=== PATIENT | male | born 1945 | race Caucasian/White ===

== ENCOUNTER → 2018-01-15 08:22 | Outpatient (CLI) | payer MEDICARE, SELFPAY ==
[2018-01-15 09:18] LABS: Add Manual Diff / Slide Review NO; Basophils Percent Auto 0.5 % (0-2); Eosinophils Percent Auto 2.3 % (2-4); Hematocrit 46.2 % (41-53); Hemoglobin 15.7 g/dL (13.5-17.5); Lymphocytes Percent Auto 22.7 % (25-40); Mean Corpuscular HGB Conc 34.1 % (30-36); Mean Corpuscular Hemoglobin 30.4 PG (26-34); Mean Corpuscular Volume 89.4 fL (80-100); Monocytes Percent Auto 7.6 % (3-14); Neutrophils Absolute Auto 4200 /uL (3000-5900); Neutrophils Percent Auto 66.9 % (50-75); Platelet Count 140 X10^3/uL (150-400); Red Blood Cell Count 5.17 X10^6/uL (4.5-5.9); Red Cell Distribution Width 13.7 % (11.6-14.8); White Blood Cell Count 6.3 X10^3/uL (4.5-11.0)
[2018-01-15 09:58] LABS: BUN Creatinine Ratio 23.3 (6-22); Blood Urea Nitrogen 21 mg/dL (9-20); Calcium 9.6 mg/dL (8.4-10.2); Carbon Dioxide 31 mmol/L (22-32); Chloride 99 mmol/L (98-107); Estimated Glomerular Filt Rate > 60.0 mL/min (>60); Glucose 102 mg/dL (80-110); HEMOLYSIS < 15 (0-50); Potassium 4.3 mmol/L (3.4-5.1); Sodium 143 mmol/L (137-145)
== END ==
PROVIDERS: PCP Family Medicine; Visit Provider Urology
DX: N20.0 Calculus of kidney (principal)
CPT/HCPCS: 36415; 80048; 85025

== ENCOUNTER → 2018-01-17 14:21 | Outpatient (CLI) | payer MEDICARE, SELFPAY ==
--- NOTE | 2018-01-17 15:17 | DI.RAD.S_ITS ---
PROCEDURE: XR CHEST 2V INDICATIONS: RENAL CALCULUS TECHNIQUE: 2 views of the chest were acquired. COMPARISON: [facility], , CHEST 2 VIEW, 11/08/2014, 13:13. FINDINGS: Surgical changes and devices: Sternal wires. Lungs and pleura: No pleural effusions or pneumothorax. Lungs are clear. Mediastinum: Mediastinal contours are normal. Heart size is normal. Bones and chest wall: No suspicious bony abnormalities. Soft tissues appear unremarkable. IMPRESSION: No acute pulmonary process. Dictated by: Lila Marvin M.D. on 01/17/2018 at 16:47 Approved by: Lila Marvin M.D. on 01/17/2018 at 16:47
== END ==
PROVIDERS: PCP Family Medicine; Visit Provider Urology
DX: Z01.818 Encounter for other preprocedural examination (principal); N20.0 Calculus of kidney; R05 Cough
CPT/HCPCS: 71046; 93005; 93010

== ENCOUNTER → 2018-02-07 11:52 | Outpatient (CLI) | payer MEDICARE, SELFPAY | PROVIDERS: PCP Family Medicine; Visit Provider Urology | DX: N20.0 Calculus of kidney (principal) | CPT/HCPCS: 82370 ==

== ENCOUNTER 2018-04-08 12:14 | Outpatient (CLI) | payer MEDICARE, SELFPAY ==
[2018-04-08 12:58] VITALS: BP 124/68; PULSE 56; RESP 18; TEMP 36.7; O2SAT 99
--- NOTE | 2018-04-08 13:09 | DI.RAD.S_ITS ---
PROCEDURE: PAIN L INTERLAMINAR/CAUDAL INJ INDICATIONS: SPINAL STENOSIS FINDINGS: Fluoroscopic spot filming was performed to verify placement of spinal needles at the L5-S1 level(s), as labeled on the films. Appropriate location(s) of the needle tip(s) was confirmed by injection of iodinated contrast. IMPRESSION: Fluoroscopy for pain management. Dictated by: Kathleen Liu M.D. on 04/08/2018 at 16:16 Approved by: Kathleen Liu M.D. on 04/08/2018 at 16:16
--- NOTE | 2018-04-08 13:10 | P.PCN_ITS ---
Procedures Date/Time Date of procedure: 04/08/18 Time of procedure: 13:07 General Procedure description: PROVIDER: Yvan Liao DO Operative Note PREOP DIAGNOSIS 1. HNP WITH RADICULAR FEATURES, 2. MULTILEVEL CENTRAL STENOSIS, POST OP DIAGNOSIS 1. HNP WITH RADICULAR FEATURES, 2. MULTILEVEL CENTRAL STENOSIS, PROCEDURES 1. FLUORSCOPICALLY GUIDED CONTRAST CONTROLLED INTERLAMINAR EPIDURAL STEROID INJECTION - L5/S1 PHYSICIAN: Yvan Liao DO INDICATIONS Danial is referred by Dr. Harley for treatment of Bilateral Foraminal Stenosis L >R LE symptoms. FINDINGS Multilevel Central Spinal Stenosis with Nerve Root Compression DESCRIPTION OF PROCEDURE Fluoroscopically guided, contrast-controlled L5/S1 translaminar epidural steroid injection. Following denial of allergy and review of potential side effects and complications, including, but not necessarily limited to, infection, allergic reaction, local tissue breakdown, temporary as well as permanent nerve injury, paralysis, stroke and possible , the patient indicated that the patient understood and agreed to proceed. An informed consent document was signed by the patient, witnessed by a nurse, and placed in the patient's chart. Additionally, other treatment options including modalities, medications, and physical therapy were reviewed with the patient. After review of previous anaesthesic history and IV conscious sedation the patient was deemed safe to proceed with todays procedure with IV conscious sedation as ASA class II designation. Safety time-out was performed to confirm patient ID, procedure to be performed and site of procedure. IV sedation was deemed unnecessary and thus was not administered by the RN to patient comfort during the course of the procedure while the patient remained responsive to all verbal commands. In the prone position, following sterile prep and drape of the lumbar region, the L5/S1 translaminar space was identified fluoroscopically. The skin was anesthetized via a 25-gauge, 1.5-inch needle with 1% lidocaine solution. At this point, a 22-gauge short bevel spinal needle was atraumatically introduced and advanced under fluoroscopic guidance into the region of the L5/S1 translaminar space. Depth was confirmed on lateral view. Radiological data, including multiple fluoroscopic views of the lumbar spine, reveal a spinal needle at the L5/S1 translaminar space. Lateral views then show placement of the needle in the epidural space. Subsequent views show contrast material flowing superiorly and inferiorly in the epidural space. No vascular or intrathecal uptake is observed. At this point, using loss of resistance technique with saline and air, the epidural space was entered. This was confirmed following negative aspiration with injection of approximately 1.5 cc of Isovue 200, showing excellent epidural flow without vascular or intrathecal uptake. At this point, 1 cc of 1 % lidocaine solution combined with 3 cc or 20 mg of dexamethasone and 80mg Depo medrol was injected without incident. The patent tolerated the procedure without signs of symptoms of complications prior to transfer to the recovery area for further monitoring. The patient was then transferred to the recovery area where they were observed for an appropriate period of time after the injection. The patient reported a VAS score of 6 prior to the procedure and a post-procedure VAS of 0. Total Fluoroscopy Time: 11.8 seconds Total Conscious Sedation Time: 24min POST OP INSTRUCTIONS The patient was provided a Pain Log to continue to record their response to the target-specific procedure prior to follow-up visit with their referring physician. Additionally, specific post-injection care instructions and a contact number to our office were provided if concerns arise regarding possible complications associated with the procedure are suspected. Yvan Liao DO
[2018-04-08 13:21] VITALS: BP 145/79; PULSE 64; RESP 16; O2SAT 99
[2018-04-08 13:28] VITALS: BP 170/94; PULSE 72; RESP 18; O2SAT 99
[2018-04-08] MEDS: IOPAMIDOL 15 ML VIAL 3 ML INJ (13:29)
[2018-04-08] MEDS: BUPIVACAINE 0.25% (PF) VIAL 2 ML INJ (13:29)
[2018-04-08] MEDS: methylPREDNISolone acetate 80 MG/ML VIAL INJ (13:30)
[2018-04-08] MEDS: DEXAMETHASONE 10 MG/ML VIAL 20 MG INJ (13:30)
[2018-04-08 13:41] VITALS: BP 135/65; PULSE 59; RESP 18; O2SAT 100
--- NOTE | 2018-04-09 13:19 | PC.NURSE ---
post follow up call made and message left as pt did not answer phone.
== END 2018-04-08 13:45 ==
LOC: RAD 12:15
PROVIDERS: Family Provider Family Medicine; PCP Family Medicine; Visit Provider Physical Medicine & Rehabilitation
DX: M51.17 Intervertebral disc disorders with radiculopathy, lumbosacral region (principal); M48.061 Spinal stenosis, lumbar region without neurogenic claudication; M48.07 Spinal stenosis, lumbosacral region
CPT/HCPCS: 62323; J1040; J1100; J2250

== ENCOUNTER 2018-05-14 07:59 | Outpatient (CLI) | payer MEDICARE, SELFPAY ==
[2018-05-14 08:23] VITALS: BP 127/83; PULSE 56; RESP 18; O2SAT 99
--- NOTE | 2018-05-14 08:50 | P.PCN_ITS ---
Procedures Date/Time Date of procedure: 05/14/18 Time of procedure: 08:48 General Procedure description: PREOP DIAGNOSIS 1. FACET ARTHROPATHY, 2. AXIAL LBP, 3. MULTILEVEL DDD, POST OP DIAGNOSIS 1. FACET ARTHROPATHY, 2. AXIAL LBP, 3. MULTILEVEL DDD, PROCEDURES 1. FLUORSCOPICALLY GUIDED CONTRAST CONTROLLED FACET JOINT INJECTIONS RIGHT L4/5 , L5/S1 SURGEON: Yvan Liao, INDICATIONS Danial is referred by for treatment of Axial LBP FINDINGS Multilevel Facet Arthropathy with Clinically significant axial LBP DESCRIPTION OF PROCEDURE Fluoroscopically guided, contrast-controlled right L4/5, L5/S1 facet joint injections. Following denial of allergy and review of potential side effects and complications, including, but not necessarily limited to, infection, allergic reaction, local tissue breakdown, stroke, temporary or permanent nerve injury, paralysis, and possible , the patient indicated that the patient understood and agreed to proceed. An informed consent document was signed by the patient, witnessed by a nurse, and placed in the patient's chart. Additionally, other treatment options including medications, modalities, and physical therapy were reviewed with the patient. After review of previous anaesthesic history and IV conscious sedation the patient was deemed safe to proceed with todays procedure with IV conscious sedation as ASA class II designation. Safety time-out was performed to confirm patient ID, procedure to be performed and site of procedure. IV sedation was deemed unnecessary and thus not administered by the RN after DO order, titrated to patient comfort during the course of the procedure while the patient remained responsive to all verbal commands. In the prone position, following sterile prep and drape of the lumbar region, the posterior aspect of the right L4/5, L5/S1 facet joints were identified fluoroscopically. The skin was anesthetized via a 25-gauge 1.5-inch needle with 1% lidocaine solution into the corresponding facet joints. At this point, a 22-gauge 3.5-inch spinal needle was atraumatically introduced and advanced under fluoroscopic guidance into the corresponding facet joints. Following negative aspiration, injections of approximately 0.2-cc of Isovue 200 confirmed interarticular placement without vascular uptake. Radiological data, including multiple fluoroscopic views of the lumbosacral spine, reveal a spinal needle at the right L4/5, L5/S1 facet joints. Subsequent views show flow of contrast material both superiorly and inferiorly within the joint space without vascular or intrathecal uptake. At this point, a total of 0.5 cc including a mixture of 0.25cc Marcaine and 0.25cc betamethasone was injected without complication into each of the corresponding facet joints. The procedure tolerated the procedure well without signs or symptoms of complications prior to transfer to the recovery area continued monitoring without incident. The patient was then transferred to the recovery area where they were observed for an appropriate period of time after the injection. The patient reported a VAS score of 7 prior to the procedure and a post-procedure VAS of 0. Total Fluoroscopy Time: 12.7 seconds Total Conscious Sedation Time: 24min POST OP INSTRUCTIONS The patient was provided a Pain Log to continue to record their response to the target-specific procedure prior to follow-up visit with their referring physician. Additionally, specific post-injection care instructions and a contact number to our office were provided if concerns arise regarding possible complications associated with the procedure are suspected. Yvan Liao, Complications: none
--- NOTE | 2018-05-14 08:56 | DI.RAD.S_ITS ---
PROCEDURE: PAIN L/SI FACET INJ/BLK 1STL INDICATIONS: Lumbosacral spondylosis with facet arthropathy FINDINGS: Fluoroscopic spot filming was performed to verify placement of spinal needles at the right L4-L5 and L5-S1 level(s), as labeled on the films. Appropriate location(s) of the needle tip(s) was confirmed by injection of iodinated contrast. Dictated by: Donta Fan M.D. on 05/14/2018 at 13:29 Approved by: Donta Fan M.D. on 05/14/2018 at 13:30
[2018-05-14 08:59] VITALS: BP 147/88; PULSE 58; RESP 16; O2SAT 99
[2018-05-14 09:04] VITALS: BP 147/88; PULSE 62; RESP 16; O2SAT 97
[2018-05-14 09:08] VITALS: BP 168/89; PULSE 60; RESP 16; O2SAT 98
--- NOTE | 2018-05-14 09:09 | PC.NURSE ---
getting pt off table, no sedation, will take pt to pre porcedure room.
[2018-05-14 09:16] VITALS: BP 137/76; PULSE 53; RESP 18; O2SAT 98
[2018-05-14] MEDS: IOPAMIDOL 15 ML VIAL 3 ML INJ (09:16)
[2018-05-14] MEDS: BUPIVACAINE 0.5% (PF) VIAL 2 ML INJ (09:16)
[2018-05-14] MEDS: BETAMETHASONE 30 MG/5 ML MDV 12 MG INJ (09:17)
--- NOTE | 2018-05-14 09:17 | PC.NURSE ---
NO SEDATION MEDS GIVEN DURING PROCEDURE
== END 2018-05-14 09:22 | disposition home or self-care (01) ==
PROVIDERS: Family Provider Family Medicine; PCP Family Medicine; Visit Provider Physical Medicine & Rehabilitation
DX: M47.816 Spondylosis without myelopathy or radiculopathy, lumbar region (principal); M47.817 Spondylosis without myelopathy or radiculopathy, lumbosacral region; M48.061 Spinal stenosis, lumbar region without neurogenic claudication; M96.1 Postlaminectomy syndrome, not elsewhere classified
CPT/HCPCS: 64493; 64494; J0702; J2250

== ENCOUNTER → 2018-06-16 13:22 | Outpatient (CLI) | payer MEDICARE, SELFPAY ==
--- NOTE | 2018-06-16 | DI.MRI.S_ITS ---
PROCEDURE: MR LUMBAR SPINE WO CON INDICATIONS: RIGHT LEG RADICULOPATHY TECHNIQUE: Noncontrast sagittal T1 spin echo and T2 fast echo, sagittal STIR, axial T1 and T2 fast spin echo through the lumbar spine. In cases with scoliosis, additional coronal T2 fast spin echo may be performed. COMPARISON: [facility], MR, L-SPINE W&WO CONTRAST, 12/11/2016, 7:37. FINDINGS: Image quality: Excellent. Alignment and Curvature: Straightening of the normal lumbar lordosis. Trace retrolisthesis of L2 on L3 and L3 on L4, as well as L4 on L5. Grade 1 retrolisthesis of L5 on S1. Bone Marrow: Diffuse endplate degenerative signal change and spurring. No acute vertebral body compression fractures. Spinal Cord: Conus medullaris terminates at the L1 level. Visualized cord demonstrates normal signal and size. Paraspinous Soft Tissues: No paravertebral masses. L1-L2: No definite canal stenosis. The lateral recesses appear grossly patent. Bilateral facet arthropathy. No foraminal stenosis. L2-L3: Large central disc protrusion/extrusion, as before although increased since 12/11/16. There is also dorsal epidural lipomatosis and severe canal narrowing which has progressed since prior study. Severe partial effacement of the lateral recesses which appears symmetric. Moderate bilateral foraminal stenoses, probably unchanged. L3-L4: Bilateral facet arthropathy. Postoperative change related to right laminotomy. Mild residual canal narrowing which appears grossly unchanged. Mild effacement of the both lateral recesses, however the appearance is grossly unchanged. Moderate left and severe right foraminal stenoses, as before L4-L5: Broad-based posterior disc bulge bilateral facet arthropathy. Partial effacement of the lateral recesses although left greater than right, as before. Severe left and moderate right foraminal narrowing, grossly unchanged. L5-S1: Broad-based posterior disc bulge bilateral facet arthropathy. Mild central canal narrowing. There is partial effacement of the left and right lateral recesses, although grossly unchanged appearance and symmetric. Severe left and right foraminal narrowing, as before IMPRESSION: Interval increase in severe central L2-L3 canal stenosis, secondary to worsening large central disc protrusion/extrusion since 12/11/16. Remainder of the examination grossly unchanged as detailed above by spinal level. Multilevel retrolisthesis as before. Dictated by: Donta Fan M.D. on 06/16/2018 at 16:13 Approved by: Donta Fan M.D. on 06/16/2018 at 16:24
== END ==
PROVIDERS: Family Provider Physical Medicine & Rehabilitation; PCP Family Medicine; Visit Provider Family Medicine
DX: M51.16 Intervertebral disc disorders with radiculopathy, lumbar region (principal); M51.17 Intervertebral disc disorders with radiculopathy, lumbosacral region; M47.26 Other spondylosis with radiculopathy, lumbar region; M47.27 Other spondylosis with radiculopathy, lumbosacral region; M48.061 Spinal stenosis, lumbar region without neurogenic claudication; M48.07 Spinal stenosis, lumbosacral region; M43.17 Spondylolisthesis, lumbosacral region
CPT/HCPCS: 72148

== ENCOUNTER 2018-06-25 12:52 | Outpatient (CLI) | payer MEDICARE, SELFPAY ==
[2018-06-25] VITALS (8 sets, daily range): BP systolic 110–170; BP diastolic 69–91; PULSE 74–89; RESP 15–24; TEMP 36.5; O2SAT 96–100
--- NOTE | 2018-06-25 12:53 | DI.RAD.S_ITS ---
PROCEDURE: PAIN L/S TRANSFORAMINAL INJECT INDICATIONS: SPONDYLOSIS FINDINGS: Fluoroscopic spot filming was performed to verify placement of spinal needles at the L2-L3 level(s), as labeled on the films. Appropriate location(s) of the needle tip(s) was confirmed by injection of iodinated contrast. Dictated by: Donta Fan M.D. on 06/25/2018 at 16:14 Approved by: Donta Fan M.D. on 06/25/2018 at 16:15
[2018-06-25] MEDS: MIDAZOLAM 5 MG/5 ML VIAL IV (14:00)
--- NOTE | 2018-06-25 14:18 | PC.NURSE ---
pt finished procedure and tolerated it well. HIs legs were a little wobbly when getting off the table, able to get into w/c with 2 person assist. pt awake and alert. Taken to pre procedure room via w/c and handed off care to Aurea PACHECO for continued monitoring.
--- NOTE | 2018-06-25 14:20 | P.PCN_ITS ---
Procedures Date/Time Date of procedure: 06/25/18 Time of procedure: 14:18 General Procedure description: PROVIDER: Yvan Liao DO Operative Note PREOP DIAGNOSIS 1. FORAMINAL STENOSIS WITH LE SYMPTOMS, POST OP DIAGNOSIS 1. FORAMINAL STENOSIS WITH LE SYMPTOMS, PROCEDURES 1. FLUOROSCOPICALLY GUIDED CONTRAST CONTROLLED TRANSFORAMINAL EPIDURAL STEROID INJECTION - RIGHT L2/3 TFESI SURGEON: Yvan Liao, INDICATIONS Danial is referred by Dr. Harley for treatment of HNP with right LE Symptoms FINDINGS Foraminal Nerve Root Compression secondary to disc disease and facet hypertrophy DESCRIPTION OF PROCEDURE Following denial of allergy and review of potential side effects and complications, including, but not necessarily limited to, infection, allergic reaction, local tissue breakdown, stroke, temporary or permanent nerve injury, paralysis, and possible , the patient indicated that the patient understood and agreed to proceed. An informed consent document was signed by the patient, witnessed by a nurse, and placed in the patient's chart. Additionally, other treatment options including medications, modalities, and physical therapy were reviewed with the patient. After review of previous anaesthesic history and IV conscious sedation the patient was deemed safe to proceed with todays procedure with IV conscious sedation as ASA class II designation. Safety time-out was performed to confirm patient ID, procedure to be performed and site of procedure. IV sedation was accomplished with a combination of 5mg was administered by the RN after DO order , titrated to patient comfort during the course of the procedure while the patient remained responsive to all verbal commands In the prone position following sterile prep and drape of the lumbar region, the right L3/4 posterior neuroforamen was identified fluoroscopically. The skin was anesthetized via a 25-gauge 1.5-inch needle with 1% lidocaine solution. At this point, a 25-gauge 3.5-inch spinal needle was atraumatically introduced and advanced under fluoroscopic guidance through the posterior right L3/4 neuroforamen to approximately the anterior aspect of the canal. Depth was confirmed on lateral view. Following negative aspiration, injection of approximately 1.5 cc of Isovue 200 under live fluoroscopy in the AP view confirmed excellent flow along the nerve root, into the epidural space without vascular or intrathecal uptake observed Radiological data, including multiple fluoroscopic views of the lumbosacral spine, reveal a spinal needle at the right L3/4 posterior neuroforamen. Subsequent views show flow of contrast material flowing superiorly and inferiorly along the nerve root confirming epidural flow. Subsequently, a test dose of 1.5 cc of 1% lidocaine solution was administered and patient was observed for two minutes for signs or symptoms of complications , including abdominal pain, shortness of breath, bilateral upper or lower extremity weakness, nausea and vomiting, prior to steroid injection. At this point, a total of 3 cc or 20 mg of dexamethasone and 80mg Depo medrol was injected without incident. The patient tolerated the procedure well without signs or symptoms of complications prior to transfer to the recovery area continued monitoring without incident. The patient was then transferred to the recovery area where they were observed for an appropriate time after the injection. The patient reported a VAS score of 7 prior to the procedure and a post-procedure VAS of 0. Total Fluoroscopy Time: 24.2 seconds Total Conscious Sedation Time: 24min POST OP INSTRUCTIONS The patient was provided a Pain Log to continue to record their response to the target-specific procedure prior to follow-up visit with their referring physician. Additionally, specific post-injection care instructions and a contact number to our office were provided if concerns arise regarding possible complications associated with the procedure are suspected. Yvan Liao DO Complications: none
[2018-06-25] MEDS: IOPAMIDOL 15 ML VIAL 3 ML INJ (14:24)
[2018-06-25] MEDS: BUPIVACAINE 0.25% (PF) VIAL 2 ML INJ (14:24)
[2018-06-25] MEDS: methylPREDNISolone acetate 80 MG/ML VIAL INJ (14:24)
[2018-06-25] MEDS: DEXAMETHASONE 10 MG/ML VIAL 20 MG INJ (14:24)
--- NOTE | 2018-06-25 14:25 | PC.NURSE ---
ACCEPTED CARE OF PT IN POST PROC AREA. PT IN STABLE CONDITION WITH VSS
== END 2018-06-25 14:48 | disposition home or self-care (01) ==
LOC: RAD 12:52
PROVIDERS: Family Provider Physical Medicine & Rehabilitation; PCP Family Medicine; Visit Provider Physical Medicine & Rehabilitation
DX: M48.061 Spinal stenosis, lumbar region without neurogenic claudication (principal); M51.16 Intervertebral disc disorders with radiculopathy, lumbar region; M47.26 Other spondylosis with radiculopathy, lumbar region; M96.1 Postlaminectomy syndrome, not elsewhere classified
CPT/HCPCS: 64483; 99152; J1040; J1100; J2250

== ENCOUNTER → 2018-10-24 08:37 | Outpatient (CLI) | payer MEDICARE, SELFPAY ==
--- NOTE | 2018-10-24 | DI.MRI.S_ITS ---
PROCEDURE: MR LUMBAR SPINE WO CON INDICATIONS: LUMBAR DISC DISEASE TECHNIQUE: Noncontrast sagittal T1 spin echo and T2 fast echo, sagittal STIR, axial T1 and T2 fast spin echo through the lumbar spine. In cases with scoliosis, additional coronal T2 fast spin echo may be performed. COMPARISON: [facility], MR, MR LUMBAR SPINE WO CON, 06/16/2018, 13:55. [facility], MR, L-SPINE W&WO CONTRAST, 12/11/2016, 7:37. FINDINGS: Image quality: Excellent. Alignment and Curvature: There is minimal retrolisthesis at L2-L3, L3-L4 and L4-L5. Bone Marrow: Marrow is of normal overall signal. No acute vertebral body compression fractures. Spinal Cord: Conus medullaris terminates at the L1-L2 level. Visualized cord demonstrates normal signal and size. Paraspinous Soft Tissues: No paravertebral masses. L1-L2: Minimal loss of disc height. Mild disc desiccation. The central canal is patent. No foraminal stenosis. L2-L3: Right hemilaminectomy since the last exam. Moderate loss of disc height and severe disc desiccation. There is diffuse disc bulge and large posterior/posterolateral disc osteophyte complex. The central canal is moderately narrowed, which is improved. Moderate to severe bilateral foraminal stenosis, unchanged. L3-L4: Right hemilaminectomy. Severe loss of disc height and disc desiccation. There is diffuse disc bulge and large posterior/posterolateral disc osteophyte complex, more accentuated on the right. The central canal is mildly narrowed. Severe right and moderate left bilateral foraminal stenosis, unchanged. L4-L5: Mild loss of disc height and moderate disc desiccation. There is mild diffuse disc bulge. Mild bilateral facet arthropathy. The central canal is moderately narrowed, slightly increased. Severe left and moderate right foraminal stenosis, unchanged. L5-S1: Moderate loss of disc height and disc desiccation. There is mild diffuse disc bulge. Mild bilateral facet arthropathy. The central canal is patent. Severe bilateral foraminal stenosis, unchanged. IMPRESSION: 1. Multilevel degenerative and postsurgical changes in lumbar spine as described. 2. Moderate central canal stenosis at L2-L3 and L4-L5, and the mild central canal stenosis at L3-L4. 3. Multilevel foraminal stenosis as described. Dictated by: Kathleen Liu M.D. on 10/24/2018 at 10:45 Approved by: Kathleen Liu M.D. on 10/24/2018 at 13:14
== END ==
PROVIDERS: Family Provider Neurological Surgery; PCP Family Medicine; Visit Provider Family Medicine
DX: M51.36 Other intervertebral disc degeneration, lumbar region (principal); M51.37 Other intervertebral disc degeneration, lumbosacral region; M47.816 Spondylosis without myelopathy or radiculopathy, lumbar region; M47.817 Spondylosis without myelopathy or radiculopathy, lumbosacral region; M48.061 Spinal stenosis, lumbar region without neurogenic claudication; M48.07 Spinal stenosis, lumbosacral region
CPT/HCPCS: 72148

== ENCOUNTER → 2019-05-02 08:06 | Outpatient (CLI) | payer MEDICARE, SELFPAY ==
[2019-05-02 10:11] LABS: Alanine Aminotransferase 37 IU/L (21-72); BUN Creatinine Ratio 22.9 (6-22); Blood Urea Nitrogen 16 mg/dL (9-20); Calcium 9.1 mg/dL (8.4-10.2); Carbon Dioxide 30 mmol/L (22-32); Chloride 105 mmol/L (98-107); Cholesterol 139 mg/dL (140-199); Estimated Glomerular Filt Rate > 60.0 mL/min (>60); Glucose 91 mg/dL (80-110); HDL Cholesterol 42 mg/dL (40-60); HEMOLYSIS 41 (0-50); LDL Cholesterol Calculated 74 mg/dL (<100); Potassium 4.1 mmol/L (3.4-5.1); Sodium 144 mmol/L (137-145); Triglycerides 117 mg/dL (35-150)
== END ==
PROVIDERS: PCP Student in an Organized Health Care Education/Training Program; Visit Provider Internal Medicine Interventional Cardiology
DX: I25.810 Atherosclerosis of coronary artery bypass graft(s) without angina pectoris (principal)
CPT/HCPCS: 36415; 80048; 80061; 84460

== ENCOUNTER → 2019-06-10 07:46 | Outpatient (CLI) | payer MEDICARE, SELFPAY ==
--- NOTE | 2019-06-10 | DI.NM.S_ITS ---
PROCEDURE: NM ARNOLD PERF SPECT R&S PHARM Rest and pharmacological stress myocardial perfusion SPECT with gated imaging and ejection fraction RADIOPHARMACEUTICAL: 21.4 mCi Tc-99m tetrafosmin IV at rest and 25.6 mCi Tc-99m tetrafosmin IV at peak effect of pharmacological stress. [id number] was performed. INDICATIONS: coronary artery dx TECHNIQUE: Radiopharmaceutical was injected at peak stress test, and also at rest. SPECT images were obtained. SPECT myocardial perfusion images were displayed in short axis, horizontal long axis, and vertical long axis views. Gated images were reviewed using Eventable software. COMPARISON: None. CARDIAC STRESS: A pharmacologic stress test was performed under the supervision of an attending staff, using an infusion of Lexiscan. Hemodynamic data: There is normal blood pressure and heart rate response to pharmacologic stress. Symptoms: The patient denied anginal chest pain. Aminophylline: Not given EKG: The baseline EKG shows diffuse T wav inversion and mild, diffuse ST depression. No diagnostic changes of ischemia; no ectopy. FINDINGS: Raw data: There is good myocardial uptake of radiotracer. No significant motion artifacts. Yxte-zz-neios ratio is 0.29 (normal is less than 0.38 for tetrafosmin tracer). Left ventricle function: Gated images demonstrate normal left ventricular wall thickening. The entire septum is hypokinetic. No other segmental wall motion abnormalities. No transient ischemic dilation; TID is 1.05 (normal less than 1.3). Left ventricle resting end diastolic volume is 110 mL. Left ventricle stress ejection fraction is 69% ; normal range is above 45%. Myocardial perfusion: There is a small, mild perfusion defect in the mid-anteroseptal wall which appears the same both on stress and rest images and persists on prone imaging, consistent with scar. There is also a small, mild mid inferior wall perfusion defect on rest supine images which resolves on prone imaging, consistent with articact. Otherewise normal distribution of activity in the left ventricular myocardium. No other fixed or reversible perfusion defects. IMPRESSION: 1)Abnormal perfusion study. 2)Small, fixed anteroseptal defect is consistent with scar. However, the associated septal hypokinesis involves a larger area of the entire septum. This could be related to the post-op state. 3)Abnormal baseline ECG with no ignfiicant change with Lexiscan infusion. 4)Overall this is a low-risk study. SSS is 0. LVEF is normal. 5)Compared to the report of the prior study on 11/09/2014, the large, reversible anterior wall ischemia is no longer demonstrated and TID is no longer abnormal. Dictated by: Cristóbal Alfonso M.D. on 06/12/2019 at 1:01 Approved by: Cristóbal Alfonso M.D. on 06/12/2019 at 1:14
--- NOTE | 2019-06-10 08:40 | PM.TREADMILL ---
Cardiac Stress Test Report Referral & Results Date Patient Seen: 06/10/19 Time Patient Seen: 08:30 Requesting provider: Blanca Looney Indication: CAD Rest ECG: NSR Procedure Note: After both written and verbal informed consent the patient had an IV started by the diagnostic imaging RN and then was hooked up to the treadmill monitoring system. The patient was placed on the treadmill at 1 mile an hour with no elevation and was then injected with the Jennifer scan material. The Cardiolite was then immediately administered. The patient spent an additional 2-3 minutes on the treadmill before being returned to [facility] in the supine position. The patient had a normal response to all infused materials. No change in rhythm during exercise. Impression: Successful Jennifer protocol. Will await perfusion imaging. Please note: Actual ECG tracings can be found in the PACS system.
== END ==
PROVIDERS: PCP Student in an Organized Health Care Education/Training Program; Visit Provider Internal Medicine Interventional Cardiology
DX: I25.10 Atherosclerotic heart disease of native coronary artery without angina pectoris (principal); R94.39 Abnormal result of other cardiovascular function study; R94.31 Abnormal electrocardiogram [ECG] [EKG]
CPT/HCPCS: 78452; 93016; 93017; 93018; A9502; J2785

== ENCOUNTER → 2019-09-23 09:40 | Outpatient (CLI) | payer MEDICARE, SELFPAY ==
--- NOTE | 2019-09-23 09:43 | DI.RAD.S_ITS ---
PROCEDURE: XR LUMBAR SPINE MIN 4V INDICATIONS: Right L3-L4 L5 and S1 medial branch blocks LA TECHNIQUE: 5 7views of the lumbar spine were acquired. COMPARISON: None. FINDINGS: Bones: 5 nonrib-bearing vertebrae are present. There is slight levoscoliotic bony alignment centered at L2. No vertebral body compression fractures. No suspicious bony lesions. There is moderate degenerative disc disease along the lumbosacral line most pronounced at L2-L3 and L5-S1. Soft tissues: Overlying bowel gas pattern is normal. No suspicious soft tissue calcifications. Oblique images: No pars defects. IMPRESSION: Moderate degenerative disc disease along the lumbosacral spine overall but most prominent at L2-L3 and L5-S1. Facet osteoarthritis becomes progressively more prominent from L3 inferiorly and is especially prominent at L5-S1. Spinal and foraminal stenosis at the lower lumbosacral spine likely is present. Dictated by: Mick Buchanan M.D. on 09/23/2019 at 11:57 Approved by: Mick Buchanan M.D. on 09/23/2019 at 11:59
== END ==
PROVIDERS: PCP Student in an Organized Health Care Education/Training Program; Referring Provider Physical Medicine & Rehabilitation; Visit Provider Physical Medicine & Rehabilitation
DX: M47.816 Spondylosis without myelopathy or radiculopathy, lumbar region (principal); M47.817 Spondylosis without myelopathy or radiculopathy, lumbosacral region; M51.36 Other intervertebral disc degeneration, lumbar region; M51.37 Other intervertebral disc degeneration, lumbosacral region; M96.1 Postlaminectomy syndrome, not elsewhere classified; G20 Parkinson's disease
CPT/HCPCS: 72110; 99214

== ENCOUNTER 2019-10-06 09:13 | Outpatient (CLI) | payer MEDICARE, SELFPAY ==
--- NOTE | 2019-10-06 09:14 | DI.RAD.S_ITS ---
PROCEDURE: PAIN L/SI FACET INJ/BLK 1STL INDICATIONS: SPONDYLOSIS FINDINGS: Fluoroscopic spot filming was performed to verify placement of spinal needles at the L3, L4, L5, S1 level(s), as labeled on the films. Appropriate location(s) of the needle tip(s) was confirmed by injection of iodinated contrast. Dictated by: Donta Fan M.D. on 10/06/2019 at 11:10 Approved by: Donta Fan M.D. on 10/06/2019 at 11:11
[2019-10-06 09:25] VITALS: BP 134/79; PULSE 59; RESP 16; TEMP 36; O2SAT 99
[2019-10-06 09:44] VITALS: BP 167/79; PULSE 60; RESP 16; O2SAT 97
[2019-10-06 09:49] VITALS: BP 153/92; PULSE 64; RESP 16; O2SAT 99
[2019-10-06] MEDS: BUPIVACAINE 0.5% (PF) VIAL 2 ML INJ (09:53)
[2019-10-06] MEDS: LIDOCAINE 1% 20 ML 10 ML INJ (09:53)
[2019-10-06] MEDS: IOPAMIDOL 15 ML VIAL 3 ML INJ (09:53)
[2019-10-06 09:54] VITALS: BP 174/83; PULSE 63; RESP 16; O2SAT 99
[2019-10-06 09:56] VITALS: BP 147/82; PULSE 62; RESP 16; O2SAT 98
--- NOTE | 2019-10-06 09:57 | PC.NURSE ---
NO SEDATION MEDS GIVEN DURING PROCEDURE. ASSISTING PT OFF TABLE AND TRANSPORTING TO POST PROC AREA IN STABLE CONDITION. PASSING RN CARE OF PT OFF TO SAIGE Marsh RN.
--- NOTE | 2019-10-06 10:02 | P.PCN_ITS ---
Procedures Date/Time Date of procedure: 10/06/19 Time of procedure: 10:02 General Procedure description: POST OP DIAGNOSIS 1. FACET ARTHROPATHY PROCEDURES 1. Right L3, L4, L5 and S1 MB BLOCKS PHYSICIAN: Yvan Liao, DO CABALLERO Danial is referred by Dr. Hidalgo for treatment of right Axial LBP. DESCRIPTION OF PROCEDURE Fluoroscopically guided, contrast-controlled right L3, L4, L5 and S1 medial branch blocks with 0.5cc of 0.5% Marcaine. Following review of allergy and review of potential side effects and complications, including, but not necessarily limited to, infection, allergic reaction, local tissue breakdown, nerve injury, paralysis, stroke and possible , the patient indicated that the patient understood and agreed to proceed. An informed consent document was signed by the patient, witnessed by a nurse, a nd placed in the patient's chart. After review of previous anaesthesic history and IV conscious sedation the patient was deemed safe to proceed with todays procedure with IV conscious sedation as ASA class II designation. Safety time-out was performed to confirm patient ID, procedure to be performed and site of procedure. IV sedation was deemed unnecessary was administered by the RN after DO order, titrated to patient comfort during the course of the procedure while the patient remained responsive to all verbal commands In the prone position, following sterile prep and drape of the lumbar region, the right L3, L4, L5 and S1 anatomical location of the medial branch of the dorsal ramus was identified fluoroscopically. Subsequently an anesthetic skin wheal using 1% lidocaine solution was initiated at each of the anatomical spots. Subsequently then a 22-gauge 3.5-inch spinal needle was atraumatically introduced and advanced under fluoroscopic guidance at each of the corresponding sites at the right L3, L4, L5 and S1 MB. After negative aspiration, 0.2 cc of Isovue 200 was injected, confirming placement without vascular or intrathecal uptake. Subsequently then 0.5 cc of 0.5% Marcaine solution was injected at each of the corresponding sites at the right L3, L4, L5 and S1 medial branch locations. The patient tolerated the procedure well without signs or symptoms of complications. The procedure tolerated the procedure well without signs or symptoms of complications prior to transfer to the recovery area continued monitoring without incident. Post-procedure, the patient was monitored initiating provocative activities to measure the amount of relief from block of the facetogenic pain. The patient reported a VAS of 7 prior to the procedure and a post-procedure VAS of 1. It has been a pleasure to assist in the diagnostic and therapeutic care of your patient. Total Fluoroscopy Time: 9 seconds POST OP INSTRUCTIONS The patient was provided with a Pain Log to complete over the next several hours and subsequent days prior to the patient's follow up with the ordering physician. If the patient has credit risk analytics manager relief to the solution applied, then they may be a candidate for medial branch rhizotomy. The patient is aware, was provided, once again, with a Pain Log and will follow up with the referring physician for review and clinical correlation Yvan Liao DO Complications: none
[2019-10-06 10:10] VITALS: BP 144/78; PULSE 55; RESP 18; O2SAT 97
--- NOTE | 2019-10-06 10:32 | PC.NURSE ---
Received patient post procedure, awake, alert, and pleasant via by Aurea PACHECO. VSS upon arrival, no sedation required. Steady transfer from to Chair
--- NOTE | 2019-10-07 16:41 | PC.NURSE ---
FOLLOW UP CALL MADE. PT STATES I DON'T THINK THE SHOT WORKED. THE PAIN ISN'T WORSE BUT IT ISN'T BETTER EITHER AND IT CAME BACK WITHIN 30 MINUTES AFTER THE PROCEDURE. I EXPLAINED TO CAMILLE THAT I WOULD PASS THIS INFORMATION ON TO DR HERNANDEZ AND THAT THE MBB, A DIAGNOSTIC TEST, MAY TELL US THAT WE NEED TO RECONSIDER THE TREATMENT PATH SINCE HE DID NOT FEEL RELIEF. HE ASKED IF HE NEEDS ANOTHER MRI HE HAS NOT HAD A FOLLOW UP MRI SINCE HIS 2018 SURGERY. I STATED I WILL ALSO PASS THAT QUESTION ON TO DR HERNANDEZ. LEFT HIM WITH INSTRUCTIONS TO CALL US IF THINGS GOT WORSE AND TO CONTINUE WITH THE PAIN LOG. HE VERBALIZED UNDERSTANDING OF ALL INSTRUCTIONS. DENIED FURTHER CONCERNS. WILL EMAIL DR HERNANDEZ TODAY ABOUT PT CONCERNS.
== END 2019-10-06 10:15 | disposition home or self-care (01) ==
LOC: RAD 09:13
PROVIDERS: PCP Student in an Organized Health Care Education/Training Program; Referring Provider Physical Medicine & Rehabilitation; Visit Provider Physical Medicine & Rehabilitation
DX: M47.817 Spondylosis without myelopathy or radiculopathy, lumbosacral region (principal); M47.816 Spondylosis without myelopathy or radiculopathy, lumbar region; M54.5 Low back pain
CPT/HCPCS: 64493; 64494; 64495; J2250; J3010

== ENCOUNTER → 2019-10-20 12:59 | Outpatient (CLI) | payer MEDICARE, SELFPAY ==
--- NOTE | 2019-10-20 13:02 | DI.MRI.S_ITS ---
PROCEDURE: MR LUMBAR SPINE WO CON INDICATIONS: increasing LBP TECHNIQUE: Noncontrast sagittal T1 spin echo and T2 fast echo, sagittal STIR, axial T1 and T2 fast spin echo through the lumbar spine. In cases with scoliosis, additional coronal T2 fast spin echo may be performed. COMPARISON: [facility], MR, L-SPINE W&WO CONTRAST, 12/11/2016, 7:37. [facility], CR, XR LUMBAR SPINE MIN 4V, 09/23/2019, 9:59. [facility], MR, MR LUMBAR SPINE WO CON, 10/24/2018, 9:27. FINDINGS: Image quality: Excellent. Alignment and Curvature: There is trace L2-L3, L3-L4 and L4-L5 retrolisthesis. Convex left lumbar spine curvature. Bone Marrow: Regular monthly changes noted adjacent to the L2-L3, L3-L4, L4-L5 and L5-S1 discs. No acute vertebral body compression fractures. Spinal Cord: Conus medullaris terminates at the L1 level. Visualized cord demonstrates normal signal and size. Paraspinous Soft Tissues: No paravertebral masses. L1-L2: Loss of the signal. Mild diffuse disc bulge and mild bilateral facet hypertrophy. Mild narrowing of the central canal. Mild bilateral neural foraminal narrowing. No neural compression. L2-L3: Loss of disc signal and height. Moderate, diffuse disc bulge. Moderate-sized central disc extrusion. Extruded disc material extends inferiorly along the posterior margin of the L3 vertebral body to the level of the L3 pedicles. Mild to moderate bilateral facet hypertrophy. Moderate to severe narrowing of the central canal. Severe bilateral neural foraminal narrowing with compression of the exiting L2 nerve roots. L3-L4: Loss of signal and height. Moderate, diffuse disc bulge. Status post right laminotomy and partial facetectomy. Mild left facet hypertrophy. Mild to moderate narrowing of the central canal. Severe right and moderate left neural foraminal narrowing with compression of the exiting right L3 nerve root. L4-L5: Loss of disc signal and mild loss of disc height. Moderate, diffuse disc bulge. Mild bilateral facet hypertrophy. Moderate narrowing of the central canal. Moderate right and severe left neural foraminal narrowing with compression of the exiting left L4 nerve root. L5-S1: Loss of disc signal and height. Mild, diffuse disc bulge. Mild bilateral facet hypertrophy. No central stenosis. Severe bilateral neural foraminal narrowing with compression of the exiting L5 nerve roots. IMPRESSION: 1. Multilevel degenerative disc disease. 2. Multilevel facet arthropathy. 3. Moderate to severe L2-L3 central canal narrowing. Moderate L4-L5 central canal narrowing. Xabd-[id number] L3-L4 central canal narrowing. Mild L1-L2 Central canal narrowing. 4. Severe bilateral L2-L3 and L5-S1 neural foraminal narrowing with compression of the exiting L2 and L5 nerve roots. Severe right L3-L4 neural foramen and compression of the exiting right L3 nerve root. Severe left L4-L5 neural foraminal narrowing with compression of the exiting left L4 nerve root. Dictated by: Bhavani John MD, PhD on 10/20/2019 at 15:25 Approved by: Bhavani John MD, PhD on 10/20/2019 at 15:36
== END ==
PROVIDERS: PCP Student in an Organized Health Care Education/Training Program; Referring Provider Physical Medicine & Rehabilitation; Visit Provider Physical Medicine & Rehabilitation
DX: M54.5 Low back pain (principal); M96.1 Postlaminectomy syndrome, not elsewhere classified; M47.816 Spondylosis without myelopathy or radiculopathy, lumbar region; M47.817 Spondylosis without myelopathy or radiculopathy, lumbosacral region; M51.36 Other intervertebral disc degeneration, lumbar region; M51.37 Other intervertebral disc degeneration, lumbosacral region; M48.061 Spinal stenosis, lumbar region without neurogenic claudication; M48.07 Spinal stenosis, lumbosacral region
CPT/HCPCS: 72148

== ENCOUNTER → 2020-01-14 09:05 | Outpatient (CLI) | payer MEDICARE, SELFPAY ==
[2020-01-14 09:46] LABS: Blood Urea Nitrogen 17 mg/dL (9-20); Calcium 9.6 mg/dL (8.4-10.2); Carbon Dioxide 32 mmol/L (22-32); Chloride 103 mmol/L (98-107); Estimated Glomerular Filt Rate > 60.0 mL/min (>60); Glucose 102 mg/dL (80-110); HEMOLYSIS < 15 (0-50); Potassium 4.4 mmol/L (3.4-5.1); Sodium 142 mmol/L (137-145)
--- NOTE | 2020-01-14 10:12 | DI.CT.S_ITS ---
PROCEDURE: CT ABDOMEN PELVIS W CON INDICATIONS: Right lower quadrant pain TECHNIQUE: After the administration of oral and intravenous contrast, 5 mm thick sections acquired from the diaphragms to the symphysis. 5 mm thick coronal and sagittal reformats were performed. For radiation dose reduction, the following was used: automated exposure control, adjustment of mA and/or kV according to patient size. COMPARISON: None. FINDINGS: Image quality: Excellent. ABDOMEN: Lung bases: Lung bases are clear. Heart size is normal. Coronary artery calcifications are present. Solid organs: Subcentimeter poorly defined focal entities, statistically cysts, however technically too small to characterize accurately. Hepatic steatosis. Gallbladder is collapsed although there is suggestion of cholelithiasis measuring 5 mm on image 30/2. Biliary system is non-dilated. Pancreas enhances normally. Spleen is normal in size and enhancement. No adrenal nodules. Bilateral nephrolithiasis measuring up to 2 mm in the left, and 2 mm on the right. There is also a large right renal pelvis calculus measuring 7 mm, with mild pelviectasis and adjacent plantar stranding. Bladder is partially collapsed. No bladder calculi seen. There are bilateral pelvic phleboliths. No definite distal ureteral calculus is seen. Peritoneum and bowel: There is possible cecal and right colon mural thickening although mild, and no definite adjacent plantar stranding. This could be due to incomplete distention. No free fluid or air. Appendix is not clearly identified. Nodes and vessels: No retroperitoneal or mesenteric adenopathy. Aorta and inferior vena cava are normal in caliber. Miscellaneous: No ventral hernias. PELVIS: Genitourinary: Bladder wall thickness is normal. Miscellaneous: No inguinal hernias or adenopathy. Bones: No suspicious bony lesions. Diffuse spondylosis and facet arthropathy. No vertebral body compression fractures. IMPRESSION: Mildly obstructive 7 mm calculus in the right renal pelvis. However, no distal ureteral calculus is seen. Additional bilateral sub-5 mm nephrolithiasis as above Short segment possible mural thickening involving the cecum and proximal right colon raising possibility of colitis, although suboptimal evaluation due to incomplete bowel distention. Please correlate clinically. Hepatic cysts. Cholelithiasis Additional chronic and incidental findings as above. Dictated by: Donta Fan M.D. on 01/14/2020 at 11:37 Approved by: Donta Fan M.D. on 01/14/2020 at 11:52
== END ==
PROVIDERS: PCP Student in an Organized Health Care Education/Training Program; Referring Provider Student in an Organized Health Care Education/Training Program; Visit Provider Student in an Organized Health Care Education/Training Program
DX: R10.31 Right lower quadrant pain (principal); K76.0 Fatty (change of) liver, not elsewhere classified; N20.0 Calculus of kidney; K80.20 Calculus of gallbladder without cholecystitis without obstruction; I25.10 Atherosclerotic heart disease of native coronary artery without angina pectoris; Z79.899 Other long term (current) drug therapy
CPT/HCPCS: 36415; 74177; 80048; Q9967

== ENCOUNTER → 2020-01-16 09:35 | Outpatient (CLI) | payer MEDICARE, SELFPAY ==
[2020-01-17 01:01] LABS: COVID19 Sendout Not Detected (Not Detect)
== END ==
PROVIDERS: PCP Student in an Organized Health Care Education/Training Program; Visit Provider Physician Assistant
DX: Z01.812 Encounter for preprocedural laboratory examination (principal)
CPT/HCPCS: 87635

== ENCOUNTER 2020-01-19 07:22 | Outpatient (CLI) | payer MEDICARE, SELFPAY ==
[2020-01-19] VITALS (11 sets, daily range): BP systolic 112–158; BP diastolic 60–88; PULSE 56–109; RESP 16; TEMP 36.3; O2SAT 94–100
--- NOTE | 2020-01-19 07:23 | DI.RAD.S_ITS ---
PROCEDURE: PAIN L/S MED/LAT N RFA INDICATIONS: SPONDYLOSIS FINDINGS: Fluoroscopic spot filming was performed to verify placement of spinal needles at the right L3 through S1 levels, as labeled on the films. IMPRESSION: Intraprocedural examination within normal limits. Dictated by: Rico Pineda M.D. on 01/19/2020 at 8:32 Approved by: Rico Pineda M.D. on 01/19/2020 at 8:33
[2020-01-19] MEDS: MIDAZOLAM 5 MG/5 ML VIAL IV (08:41)
[2020-01-19] MEDS: fentaNYL 100 MCG/2 ML INJ 50 MCG IV (08:42)
[2020-01-19] MEDS: LIDOCAINE 1% 20 ML 10 ML INJ (08:59)
[2020-01-19] MEDS: BUPIVACAINE 0.5% (PF) VIAL 5 ML INJ (08:59)
--- NOTE | 2020-01-19 09:08 | PC.NURSE ---
ASSISTING PT OFF TABLE AND TRANSPORTING TO POST PROC AREA IN STABLE CONDITION. PASSING RN CARE OF PT OFF TO JUNIOR CREWS.
--- NOTE | 2020-01-19 09:26 | PC.NURSE ---
pt returned to pre proc room via wchr. assisted from wc to chair, monitoring resumed by JUNIOR Garcia
--- NOTE | 2020-01-25 13:10 | P.PCN_ITS ---
Procedures Date/Time Date of procedure: 01/19/20 Time of procedure: 07:43 General Procedure description: PREOP DIAGNOSIS 1. RECALCITRANT FACET ARTHROPATHY, POST OP DIAGNOSIS 1. RECALCITRANT FACET ARTHROPATHY, PROCEDURES 1. RIGHT L3, L4 AND L5 MEDIAL BRANCH RADIOFREQUENCY NEUROTOMY AND RIGHT S1 DORSAL RAMUS BRANCH RADIOFREQUENCY NEUROTOMY, SURGEON: Yvan Liao, DO INDICATIONS Danial is referred by for treatment of facet arthropathy. DESCRIPTION OF PROCEDURE Right L4 and L5 medial branch radiofrequency neurotomy and right S1 dorsal ramus branch radiofrequency neurotomy under fluoroscopy with conscious sedation. The patient is well known to this clinic having undergone previous facet injections with good but temporary relief. The patient has experienced appropriate, concordant relief with previous facet and median branch blocks but the patient's pain has been recalcitrant to further conservative measures. Therefore, based upon the patient's relief and persistent symptoms, the patient is considered an appropriate candidate for facet rhizotomy. All of the patient's questions regarding the risks versus benefits of the procedure, including, but not limited to, bleeding, infection, temporary as well as lasting nerve injury, paralysis, stroke, and , as well treatment alternatives were answered to satisfaction. After review of previous anaesthesic history and IV conscious sedation the patient was deemed safe to proceed with todays procedure with IV conscious sedation as ASA class II designation. Safety time-out was performed to confirm patient ID, procedure to be performed and site of procedure. IV sedation was accomplished with a combination of 3mg of Versed and 50mcg of Fentanyl was administered by the RN after DO order, titrated to patient comfort during the course of the procedure while the patient remained responsive to all verbal commands. After obtaining informed consent, denial of pertinent drug allergies, as well as being made aware of the potential risks of bleeding, infection, spinal cord trauma, paralysis, temporary and permanent nerve damage, seizure, stroke, and possible , the patient was brought to the fluoroscopy suite and positioned prone on the fluoroscopy table. The lumbar region was prepped with Betadine and covered with a fenestrated drape in the usual sterile fashion. Appropriate monitors applied including pulse oximeter, pulse, and blood pressure for regular monitoring throughout the procedure. After local infiltration using 1% lidocaine, under fluoroscopic guidance, a 10- cm RF insulated needle with a 10-mm active tip was positioned parallel to the junction of the right sacral ala and the superior articulating process where the S1 dorsal ramus resides. Needle placement was confirmed with sensory stimulation at 50 Hz, with motor stimulation of .5v on the right which produced local stimulation without radicular component. The stimulation was then increased to 1.5v with, once again, only local multifidus stimulation without radicular component. This was then followed by two discreet lesions performed at 80 degrees Celsius for 90 seconds each. The needle was then removed and the identical procedure was performed along the length of the right L5 medial branch with motor stimulation at .7v on the right. The identical procedure was once again performed along the length of the right L4 medial branch with motor stimulation of .5v on the right. The identical procedure was once again performed along the length of the right L3 medial branch with motor stimulation of .5v on the right. The patient tolerated the procedure well without signs or symptoms of complications prior to transfer to the recovery area continued monitoring without incident. The patient was then transferred to the recovery area where they were observed for an appropriate period of time after the injection. The patient was then transferred to the recovery area where they were observed for an appropriate period of time after the injection. The patient reported a VAS score of 9 prior to the procedure and a post- procedure VAS of 0. Total Fluoroscopy Time: 24 seconds Total Conscious Sedation Time: 45min POST OP INSTRUCTIONS The patient was provided a Pain Log to continue to record the patient's response to the target-specific procedure prior to the patient's follow-up visit with the referring physician. Additionally, specific post-injection care instructions and a contact number to our office were provided if concerns arise regarding possible complications associated with the procedure are suspected. Yvan Liao DO Complications: none
== END 2020-01-19 09:26 | disposition home or self-care (01) ==
LOC: RAD 07:22
PROVIDERS: PCP Student in an Organized Health Care Education/Training Program; Referring Provider Physical Medicine & Rehabilitation; Visit Provider Physical Medicine & Rehabilitation
DX: M47.816 Spondylosis without myelopathy or radiculopathy, lumbar region (principal); M47.817 Spondylosis without myelopathy or radiculopathy, lumbosacral region
CPT/HCPCS: 64635; 64636; 99152; J2250; J3010

== ENCOUNTER → 2020-02-29 08:29 | Outpatient (CLI) | payer MEDICARE, SELFPAY ==
--- NOTE | 2020-02-29 | DI.RAD.S_ITS ---
PROCEDURE: XR ABDOMEN 1V INDICATIONS: Kidney stone TECHNIQUE: One view of the abdomen acquired. COMPARISON: [facility], CT, CT ABDOMEN PELVIS W CON, 01/14/2020, 10:05. FINDINGS: Surgical changes and devices: A right-sided double-J stent is seen, with the ends in the expected locations. Left groin laparoscopic anchors are seen, from prior presumed hernia repair. Post CABG changes are partially seen. Bowel: Bowel gas pattern is normal. Soft tissues: No suspicious abdominal calcifications. Visualized solid organ contours appear normal in size. Pelvic phleboliths are incidentally noted. Bones: No suspicious bony lesions. Age-appropriate bony degenerative changes are seen. Mild levoconvex scoliotic curvature is noted. IMPRESSION: Right-sided double-J stent. No definite stones are seen on this plain film study. Please consider a follow-up CT for further evaluation. Dictated by: Rico Pineda M.D. on 02/29/2020 at 8:22 Approved by: Rico Pineda M.D. on 02/29/2020 at 8:24
== END ==
PROVIDERS: PCP Student in an Organized Health Care Education/Training Program; Referring Provider Urology; Visit Provider Urology
DX: N20.0 Calculus of kidney (principal); Z96.0 Presence of urogenital implants
CPT/HCPCS: 74018

== ENCOUNTER → 2020-05-03 07:56 | Outpatient (CLI) | payer MEDICARE, SELFPAY ==
[2020-05-03 10:24] LABS: Alanine Aminotransferase 18 IU/L (<50); BUN Creatinine Ratio 22.2 (6-22); Blood Urea Nitrogen 18 mg/dL (9-20); Calcium 9.1 mg/dL (8.4-10.2); Carbon Dioxide 32 mmol/L (22-32); Chloride 103 mmol/L (98-107); Cholesterol 132 mg/dL (140-199); Estimated Glomerular Filt Rate > 60.0 mL/min (>60); Glucose 89 mg/dL (80-110); HDL Cholesterol 50 mg/dL (40-60); HEMOLYSIS < 15 (0-50); LDL Cholesterol Calculated 56 mg/dL (<100); Potassium 3.7 mmol/L (3.4-5.1); Sodium 141 mmol/L (137-145); Triglycerides 129 mg/dL (35-150)
== END ==
PROVIDERS: PCP Student in an Organized Health Care Education/Training Program; Referring Provider Internal Medicine Interventional Cardiology; Visit Provider Internal Medicine Interventional Cardiology
DX: I25.810 Atherosclerosis of coronary artery bypass graft(s) without angina pectoris (principal); E78.5 Hyperlipidemia, unspecified
CPT/HCPCS: 36415; 80048; 80061; 84460

== ENCOUNTER → 2021-03-08 09:25 | Outpatient (CLI) | payer MEDICARE, SELFPAY ==
--- NOTE | 2021-03-08 | DI.RAD.S_ITS ---
PROCEDURE: XR ABDOMEN 1V INDICATIONS: Personal history of urinary calculi TECHNIQUE: One view of the abdomen acquired. COMPARISON: [facility], CT, CT ABDOMEN PELVIS W CON, 01/14/2020, 10:05. [facility], CR, XR ABDOMEN 1V, 02/29/2020, 8:24. FINDINGS: Surgical changes and devices: Mesh left pelvis. Bowel: Prominent stool in the colon. Soft tissues: No definite kidney stones. Several punctate kidney stones are seen on the CT from December 2019. No suspicious abdominal calcifications. Visualized solid organ contours appear normal in size. Bones: No suspicious bony lesions. Mild scoliosis. [id number] bilateral hip DJD. IMPRESSION: No definite kidney stones seen. Prominent stool in the colon. Dictated by: Arcadio Mcgovern M.D. on 03/08/2021 at 10:15 Approved by: Arcadio Mcgovern M.D. on 03/08/2021 at 10:20
== END ==
PROVIDERS: PCP Student in an Organized Health Care Education/Training Program; Referring Provider Urology; Visit Provider Urology
DX: Z09 Encounter for follow-up examination after completed treatment for conditions other than malignant neoplasm (principal); Z87.442 Personal history of urinary calculi
CPT/HCPCS: 74018

== ENCOUNTER → 2021-06-20 08:17 | Outpatient (CLI) | payer MEDICARE, SELFPAY ==
[2021-06-20 09:44] LABS: Blood Urea Nitrogen 16 mg/dL (9-20); Calcium 9.2 mg/dL (8.4-10.2); Carbon Dioxide 33 mmol/L (22-32); Chloride 103 mmol/L (98-107); Cholesterol 116 mg/dL (140-199); Estimated Glomerular Filt Rate > 60.0 mL/min (>60); Glucose 92 mg/dL (80-110); HDL Cholesterol 45 mg/dL (40-60); HEMOLYSIS < 15 (0-50); LDL Cholesterol Calculated 56 mg/dL (<100); Potassium 3.8 mmol/L (3.4-5.1); Sodium 142 mmol/L (137-145); Triglycerides 76 mg/dL (35-150)
== END ==
PROVIDERS: PCP Student in an Organized Health Care Education/Training Program; Referring Provider Internal Medicine Interventional Cardiology; Visit Provider Internal Medicine Interventional Cardiology
DX: I25.810 Atherosclerosis of coronary artery bypass graft(s) without angina pectoris (principal); Z95.1 Presence of aortocoronary bypass graft
CPT/HCPCS: 36415; 80048; 80061

== ENCOUNTER → 2022-07-10 08:08 | Outpatient (CLI) | payer MEDICARE, SELFPAY ==
[2022-07-10 09:18] LABS: BUN Creatinine Ratio 18.5 (6-22); Blood Urea Nitrogen 15 mg/dL (9-20); Calcium 8.9 mg/dL (8.4-10.2); Carbon Dioxide 32 mmol/L (22-32); Chloride 102 mmol/L (98-107); Cholesterol 122 mg/dL (140-199); Estimated Glomerular Filt Rate > 60 mL/min (>60); Glucose 93 mg/dL (80-110); HDL Cholesterol 46 mg/dL (40-60); HEMOLYSIS < 15 (0-50); LDL Cholesterol Calculated 58 mg/dL (<100); Potassium 3.7 mmol/L (3.4-5.1); Sodium 143 mmol/L (137-145); Triglycerides 88 mg/dL (35-150)
== END ==
PROVIDERS: PCP Student in an Organized Health Care Education/Training Program; Referring Provider Internal Medicine Interventional Cardiology; Visit Provider Internal Medicine Interventional Cardiology
DX: I25.810 Atherosclerosis of coronary artery bypass graft(s) without angina pectoris (principal)
CPT/HCPCS: 36415; 80048; 80061

== ENCOUNTER → 2023-01-07 07:23 | Outpatient (CLI) | payer MEDICARE, SELFPAY ==
[2023-01-07 08:01] LABS: Add Manual Diff / Slide Review NO; Basophils Absolute Auto 0 /uL (0-100); Basophils Percent Auto 0.5 % (0-2); Eosinophils Absolute Auto 200 /uL (0-450); Eosinophils Percent Auto 3.9 % (2-4); Hemoglobin 14.2 g/dL (13.5-17.5); Lymphocytes Absolute Auto 1200 /uL (1100-4500); Lymphocytes Percent Auto 23.3 % (25-40); Mean Corpuscular HGB Conc 33.7 % (30-36); Mean Corpuscular Hemoglobin 30.3 PG (26-34); Mean Corpuscular Volume 89.7 fL (80-100); Monocytes Absolute Auto 400 /uL (0-900); Monocytes Percent Auto 8.6 % (3-14); Neutrophils Absolute Auto 3200 /uL (1500-7000); Neutrophils Percent Auto 63.7 % (50-75); Platelet Count 131 X10^3/uL (150-400); Red Blood Cell Count 4.68 X10^6/uL (4.5-5.9); Red Cell Distribution Width 13.4 % (11.6-14.8)
[2023-01-07 08:41] LABS: Blood Urea Nitrogen 17 mg/dL (9-20); Calcium 9.1 mg/dL (8.4-10.2); Carbon Dioxide 34 mmol/L (22-32); Chloride 100 mmol/L (98-107); Estimated Glomerular Filt Rate > 60 mL/min (>60); Glucose 92 mg/dL (80-110); HEMOLYSIS < 15 (0-50); Potassium 3.8 mmol/L (3.4-5.1); Sodium 139 mmol/L (137-145)
== END ==
PROVIDERS: PCP Registered Nurse; Referring Provider Internal Medicine Interventional Cardiology; Visit Provider Internal Medicine Interventional Cardiology
DX: R07.9 Chest pain, unspecified (principal)
CPT/HCPCS: 36415; 80048; 85025

== ENCOUNTER → 2023-09-20 08:02 | Outpatient (CLI) | payer MEDICARE, SELFPAY ==
[2023-09-20 09:09] LABS: BUN Creatinine Ratio 22.5 (6-22); Blood Urea Nitrogen 18 mg/dL (9-20); Calcium 9.2 mg/dL (8.4-10.2); Carbon Dioxide 30 mmol/L (22-32); Chloride 105 mmol/L (98-107); Cholesterol 115 mg/dL (140-199); Estimated Glomerular Filt Rate > 60 mL/min (>60); Glucose 95 mg/dL (80-110); HDL Cholesterol 49 mg/dL (40-60); HEMOLYSIS < 15 (0-50); LDL Cholesterol Calculated 51 mg/dL (<100); Potassium 3.7 mmol/L (3.4-5.1); Sodium 141 mmol/L (137-145); Triglycerides 73 mg/dL (35-150)
== END ==
PROVIDERS: PCP Registered Nurse; Referring Provider Internal Medicine Interventional Cardiology; Visit Provider Internal Medicine Interventional Cardiology
DX: I25.810 Atherosclerosis of coronary artery bypass graft(s) without angina pectoris (principal)
CPT/HCPCS: 36415; 80048; 80061

== ENCOUNTER → 2023-12-04 08:18 | Outpatient (CLI) | payer MEDICARE, SELFPAY ==
--- NOTE | 2023-12-04 08:19 | DI.RAD.S_ITS ---
PROCEDURE: XR KUB INDICATIONS: Nephrolithiasis TECHNIQUE: One view of the abdomen acquired. COMPARISON: [facility], CT, CT ABDOMEN PELVIS WITH CONTRAST, 11/25/2023, 14:46. [facility], CR, KUB XRAY (1 VIEW ABDOMEN), 12/03/2016, 7:52. FINDINGS: Surgical changes and devices: Left lower quadrant hernia repair. Bowel: Bowel gas pattern is normal. Soft tissues: 6 millimeter stone projects over the left renal pelvis. Additional smaller stones project over the left kidney. Right renal stones not appreciated. Bones: No suspicious bony lesions. IMPRESSION: 6 millimeter stone projects over the left renal pelvis, similar to position on 11/25/2023. Dictated by: Cole Potter M.D. on 12/04/2023 at 8:54 Approved by: Cole Potter M.D. on 12/04/2023 at 8:55
== END ==
PROVIDERS: PCP Family Medicine; Referring Provider Specialist; Visit Provider Specialist
DX: N20.0 Calculus of kidney (principal); Z87.442 Personal history of urinary calculi
CPT/HCPCS: 74018

== ENCOUNTER 2023-12-20 09:23 | Day surgery (SDC) | payer MEDICARE, SELFPAY ==
[2023-12-16 14:29] VITALS: BMI 28.3
[2023-12-20] VITALS (9 sets, daily range): BP systolic 111–152; BP diastolic 52–83; PULSE 56–64; RESP 12–18; TEMP 36.2–36.6; O2SAT 98–100; BMI 28.3
--- NOTE | 2023-12-20 09:00 | DI.RAD.S_ITS ---
PROCEDURE: XR KUB INDICATIONS: Left nephrolithiasis TECHNIQUE: One view of the abdomen acquired. COMPARISON: [facility], CR, XR KUB, 12/04/2023, 8:20. [facility], CT, CT ABDOMEN PELVIS WITH CONTRAST, 11/25/2023, 14:46. FINDINGS: Surgical changes and devices: None. Bowel: Bowel gas pattern is normal. Soft tissues: A left-sided 1.1 cm stone which was previously in the left renal pelvis is appears to be lower than previous, and may potentially be present in the proximal left ureter. On the previous CT of was present at mid to upper L3. Is now present at mid L4. Visualized solid organ contours appear normal in size. Bones: No suspicious bony lesions. IMPRESSION: Question descent of 1.1 cm left-sided stone from the renal pelvis into the left ureter. Comment: Recommend correlation with symptoms and consideration of CT KUB. Dictated by: Christopher Cha M.D. on 12/20/2023 at 11:12 Approved by: Christopher Cha M.D. on 12/20/2023 at 11:15
--- NOTE | 2023-12-20 10:06 | SUR.PREOP ---
pt gone to get a KUB pre-op
[2023-12-20] MEDS: LACTATED RINGERS 1,000 ML 42 ML IV (10:08)
[2023-12-20] MEDS: ACETAMINOPHEN IV 1,000 MG/100 ML VIAL 400 MG IV (10:49)
[2023-12-20] MEDS: FUROSEMIDE 20 MG/2 ML VIAL IV (11:42)
--- NOTE | 2023-12-20 11:47 | P.OP_ITS ---
Operative Date/Time/Diagnoses Date of procedure: 12/20/23 Time of procedure: 11:30 Pre-op diagnosis: 1. Left nephrolithiasis. 2. Left renal colic. Post-op diagnosis: same Procedure & Clinicians Procedure: 1. Left extracorporeal shockwave lithotripsy (2500 shocks x maximum power level 7.0). Same procedure as scheduled: Yes Indications: 1. Left nephrolithiasis. 2. Left renal colic. Surgeon: Kallie Colvin Click Yes if Unassisted: Yes Anesthesia Type: General Operative Notes Findings: A 6 mm, and a 4 mm left renal calculus in the interpolar collecting system visualized fluoroscopically in consistent with preoperative imaging. Closure Type: not applicable Specimen(s): none sent Estimated Blood Loss (mL): 0 Blood products transfused: none Procedure in detail: The patient was positioned in supine was administered general anesthesia. Next, the 6 mm calculus was identified and localized in the X, Y, and Z plane. Lithotripsy was then commenced at minimal power level for 200 shocks. A 2 minute pause was then conducted. Lithotripsy was then resumed and the power level gradually increased to 7.0. The stone in his fragments were relocalized numerous times throughout the case. Satisfied with radiographic evidence of excellent stone comminution attention was then turned to the 4 mm calculus described above. It too was localized in the X, Y, and Z plane. Lithotripsy was resumed at power level 7.0. The stone is fragments were relocalized as needed throughout the remainder of the treatment. At 2500 shocks there was no radiographic evidence of remaining stone or fragment within the left collecting system. The patient was then awakened, transferred to [facility], and transferred to recovery in stable condition. Complications: none Post-operative Condition: stable Disposition: PACU Plan for aftercare: Discharge home.
== END 2023-12-20 13:01 | disposition home or self-care (01) ==
PROVIDERS: PCP Family Medicine; Referring Provider Specialist; Visit Provider Specialist
PROC: (CPT 50590; principal; 2023-12-20 10:45)
DX: N20.0 Calculus of kidney (principal)
CPT/HCPCS: 50590; 74018; J0136; J1100; J1940; J2405; J2704; J3010

== ENCOUNTER 2023-12-24 09:13 | Emergency (ER) | payer MEDICARE, SELFPAY ==
[2023-12-24 09:28] VITALS: PULSE 64; O2SAT 98
[2023-12-24 09:30] VITALS: PULSE 58; RESP 17; O2SAT 99
[2023-12-24 09:31] VITALS: BP 164/73; PULSE 57; RESP 19; TEMP 36.4; O2SAT 99; BMI 27.9
--- NOTE | 2023-12-24 09:45 | ED_ITS ---
HPI - General Adult General Chief complaint: Urogenital-Male Stated complaint: Blood in urine Time Seen by Provider: 12/24/23 09:24 Source: patient Mode of arrival: Ambulatory Limitations: no limitations History of Present Illness HPI narrative: Patient is a 78-year-old male. Last Saturday underwent a left-sided lithotripsy. He states that he has had persistent blood in his urine since then. He states that he expected to have blood for a couple days but the last time that he would lithotripsy did not last this long. He has no fevers. No pain. Is passing some small gravel and potential tissue. He tried to contact the urologist office but was only sent to [facility] He went to the urologist office today and the urologist was not in the office so he was sent here in the emergency department. He was feeling like he is emptying his bladder like normal. Related Data Home Medications Medication Instructions Recorded Confirmed aspirin 81 mg tablet,delayed 81 mg PO QDAY ##0 08/30/16 12/20/23 release atorvastatin 20 mg tablet (Lipitor) 20 mg PO QDAY ##0 08/30/16 12/20/23 hydrochlorothiazide 25 mg tablet 25 mg PO QDAY ##0 08/30/16 12/20/23 losartan 50 mg tablet 50 mg PO QDAY ##0 08/30/16 12/20/23 metoprolol succinate 25 mg capsule 12.5 mg PO DAILY 09/23/19 12/20/23 sprinkle, ext. release 24 hr tamsulosin 0.4 mg capsule 0.4 mg PO DAILY 09/23/19 12/20/23 carbidopa ER 25 mg-levodopa 100 mg 1.5 tab PO BID 12/03/23 12/20/23 tablet,extended release docosahexaenoic acid 200 mg 200 mg PO DAILY 12/03/23 12/20/23 capsule (Algal [place]-3 DHA) melatonin 3 mg capsule 3 mg PO BEDTIME PRN Sleep 12/03/23 12/20/23 multivitamin 1 tab PO DAILY 12/03/23 12/20/23 Previous Rx's Medication Instructions Recorded tramadol 50 mg tablet 50 mg PO TID PRN pain #30 tabs 01/19/20 celecoxib 200 mg capsule (Celebrex) 200 mg PO DAILY #90 caps 10/30/23 oxycodone 5 mg tablet 5 mg PO Q6H PRN pain #10 tabs 12/20/23 Allergies Allergy/AdvReac Type Severity Reaction Status Date / Time No Known Drug Allergies Allergy Verified 12/20/23 09:57 Review of Systems Review of Systems Narrative: See HPI Patient History Medical History S/P extracorporeal shock wave therapy (01/23/18) CAD (coronary artery disease) Calculus of left kidney History of nephrolithiasis Bilateral nephrolithiasis Hx of Parkinson's disease History of kidney stones Hx of primary hypertension Family history of premature coronary heart disease Hx of nonmelanoma skin cancer History of BPH Surgical History (Updated 12/16/23 @ 15:27 by Danette Velarde RN) History of urologic surgery (02/18/20) Hx of kidney removal Hx of laparoscopy Hx of hernia repair Hx of gastric bypass History of coronary artery stent placement (01/09/23) History of back surgery (07/2018) H/O lithotripsy H/O coronary artery bypass surgery (11/25/14) History of operative procedure on lumbosacral spinal structure Family History Mother Heart attack Coronary artery disease Hyperlipidemia Hypertension Migraines Father Liver cancer BPH (benign prostatic hyperplasia) Cancer Social History marital status: number of children: 1 household members: spouse Smoking Status: Never smoker alcohol intake: current caffeine: Yes Type(s) of exercise: walking and occasional exercise frequency: daily duration: 45-60 minutes/day Smoking Status: Never smoker alcohol intake frequency: a few times a month Substance Use Type: does not use Exam Initial Vital Signs Initial Vital Signs: Vital Signs Pulse Rate 64 12/24/23 09:28 Pulse Oximetry 98 12/24/23 09:28 HENMT Head: normal to inspection and normocephalic Resp Effort & Inspection: normal respiratory effort Cardio Rate: regular rate GI Inspection: non-distended Neuro General: patient alert, patient awake and moves all extremities Course Orders Ordered: ED Orders 12/24/23 09:25 Ictotest Urine Stat Urinalysis and Microscopic Stat Urine Culture Stat 12/24/23 10:05 Basic Metabolic Panel Stat Complete Blood Count AUTO DIFF Stat Vital Signs Vital signs: Vital Signs - 8 hr 12/24/23 09:28 12/24/23 09:30 12/24/23 09:31 Temperature 97.6 F Pulse Rate 64 58 L 57 L Respiratory Rate 17 19 Blood Pressure 164/73 H Pulse Oximetry 98 99 99 Oxygen Delivery Method Room Air 12/24/23 10:00 12/24/23 10:01 12/24/23 10:01 Temperature Pulse Rate 58 L 58 L Respiratory Rate 15 17 Blood Pressure 132/64 Pulse Oximetry 98 98 Oxygen Delivery Method 12/24/23 10:30 12/24/23 10:30 Temperature Pulse Rate 58 L Respiratory Rate 13 Blood Pressure 150/67 H Pulse Oximetry 99 Oxygen Delivery Method Medical Decision Making Lab Data 12/24/23 10:05 12/24/23 10:05 Labs: Lab Results 12/24/23 12/24/23 Range/Units 09:25 10:05 WBC 4.9 (4.5-11.0) X10^3/uL RBC 4.63 (4.5-5.9) X10^6/uL Hgb 13.9 (13.5-17.5) g/dL Hct 41.3 (41-53) % MCV 89.1 (80-100) fL MCH 30.1 (26-34) PG MCHC 33.8 (30-36) % RDW 13.5 (11.6-14.8) % Plt Count 142 L (150-400) X10^3/uL Neut % (Auto) 66.6 (50-75) % Lymph % (Auto) 21.4 L (25-40) % [place] % (Auto) 8.5 (3-14) % Eos % (Auto) 2.9 (2-4) % Baso % (Auto) 0.6 (0-2) % Neut # (Auto) 3200 (1546-2567) /uL Lymph # (Auto) 1000 L (8032-0347) /uL [place] # (Auto) 400 (0-900) /uL Eos # (Auto) 100 (0-450) /uL Baso # (Auto) 0 (0-100) /uL Sodium 139 (137-145) mmol/L Potassium 3.6 (3.4-5.1) mmol/L Chloride 104 (98-107) mmol/L Carbon Dioxide 33 H (22-32) mmol/L BUN 17 (9-20) mg/dL Creatinine 0.69 (0.66-1.25) mg/dL Estimated GFR > 60 (>60) mL/min BUN/Creatinine Ratio 24.6 H (6-22) Glucose 97 (80-110) mg/dL Calcium 8.7 (8.4-10.2) mg/dL Urine Color Brown Urine Appearance Cloudy Urine pH 6.5 (4.5-8.0) Ur Specific [place] 1.025 (1.000-1.035) Urine Protein 3+ H (Negative) Urine Glucose (UA) Negative (Negative) g/dL Urine Ketones Trace H (NEGATIVE) Urine Occult Blood 3+ H (Negative) Urine Nitrate Positive H (Negative) Urine Bilirubin 2+ H (NEGATIVE) Ur Bilirubin Confirm Negative (Negative) Urine Urobilinogen 1.0 (0.2) E.U./dL Ur Leukocyte Esterase 3+ H (NEGATIVE) Urine RBC >100/hpf H (0-5/HPF) Urine WBC >100/hpf H (0-5/HPF) Ur Squamous Epith Cells 1-5 /hpf (0-5/HPF) Urine Bacteria Moderate (10-30) H (None) Ur Culture Indicated? Specimen cultured Vol Urine Centrifuged 10ml (spun) MDM Narrative Medical decision making narrative: Benign exam. Labs are unremarkable. Vital signs unremarkable. He does have a nitrite positive urine but has no urinary symptoms. A urine culture was ordered we will wait for that to resolve before treated with any antibiotics. Discussed the case with Dr. Zuniga who is on-call for Urology. He will let the urologist who performed the procedure know that the patient was here in the ER and they will contact the patient for a follow-up. Patient was given return precautions. He expressed understanding and agreement. Discharge Plan Departure Patient Disposition: Home Clinical Impression: Hematuria Instructions: DI for Hematuria Activity Restrictions/Additional Instructions: Continue to take all of your medications as directed. Follow all of the postoperative instructions given to by the urologist. You should be receiving a phone call from the urologist office for a follow-up. Return to the emergency department for new or worsening symptoms. Prescriptions: No Action atorvastatin [Lipitor] 20 MG tablet 20 mg PO QDAY Qty: 0 hydrochlorothiazide 25 MG tablet 25 mg PO QDAY Qty: 0 losartan 50 MG tablet 50 mg PO QDAY Qty: 0 aspirin 81 MG tablet,delayed release (DR/EC) 81 mg PO QDAY Qty: 0 tramadol 50 mg tablet 50 mg PO TID PRN (Reason: pain) Qty: 30 1RF celecoxib [Celebrex] 200 mg capsule 200 mg PO DAILY Qty: 90 0RF Rx Instructions: PLEASE HAVE PT MAKE APPT WITH US TO CONTINUE MEDICATION. oxycodone 5 mg tablet 5 mg PO Q6H PRN (Reason: pain) Qty: 10 0RF metoprolol succinate 25 mg capsule,sprinkle,ER 24hr 12.5 mg PO DAILY tamsulosin 0.4 mg capsule 0.4 mg PO DAILY carbidopa-levodopa 25-100 mg tablet extended release 1.5 tab PO BID multivitamin Tablet 1 tab PO DAILY Algal [place]-3 DHA 200 mg capsule 200 mg PO DAILY melatonin 3 mg capsule 3 mg PO BEDTIME PRN (Reason: Sleep) Referrals: Bernard Gibbs DO [Primary Care Provider] - Stand Alone Forms: Patient Portal/API
[2023-12-24 10:00] VITALS: PULSE 58; RESP 15; O2SAT 98
[2023-12-24 10:01] VITALS: BP 132/64; PULSE 58; RESP 17; O2SAT 98
[2023-12-24 10:01] LABS: Appearance Urine UA CLOUDY; Bilirubin Urine UA 2+ (NEGATIVE); Color Urine UA BROWN; Glucose Urine UA NEGATIVE (Negative); Ketones Urine UA TRACE (NEGATIVE); Nitrite Urine UA POSITIVE (Negative); Occult Blood Urine UA 3+ (Negative); Protein Urine UA 3+ (Negative); Specific Gravity Urine UA 1.025 (1.000-1.035); pH Urine UA 6.5 (4.5-8.0)
[2023-12-24 10:03] LABS: Leukocyte Esterase Urine UA 3+ (NEGATIVE)
[2023-12-24 10:07] LABS: Bacteria Urine Moderate (10-30); Culture Indicated Urine Specimen Cultured; Ictotest Urine Negative (Negative); RBC Urine >100/HPF (0-5/HPF); Squamous Epithelial Cell Urine 1-5 /HPF (0-5/HPF); Urine Volume 10mL (spun); WBC Urine >100/HPF (0-5/HPF)
[2023-12-24 10:12] LABS: Add Manual Diff / Slide Review NO; Basophils Absolute Auto 0 /uL (0-100); Basophils Percent Auto 0.6 % (0-2); Eosinophils Absolute Auto 100 /uL (0-450); Eosinophils Percent Auto 2.9 % (2-4); Hematocrit 41.3 % (41-53); Hemoglobin 13.9 g/dL (13.5-17.5); Lymphocytes Absolute Auto 1000 /uL (1100-4500); Lymphocytes Percent Auto 21.4 % (25-40); Mean Corpuscular HGB Conc 33.8 % (30-36); Mean Corpuscular Hemoglobin 30.1 PG (26-34); Mean Corpuscular Volume 89.1 fL (80-100); Monocytes Absolute Auto 400 /uL (0-900); Monocytes Percent Auto 8.5 % (3-14); Neutrophils Absolute Auto 3200 /uL (1500-7000); Neutrophils Percent Auto 66.6 % (50-75); Platelet Count 142 X10^3/uL (150-400); Red Blood Cell Count 4.63 X10^6/uL (4.5-5.9); Red Cell Distribution Width 13.5 % (11.6-14.8); White Blood Cell Count 4.9 X10^3/uL (4.5-11.0)
--- NOTE | 2023-12-24 10:27 | PC.NURSE ---
Pt reports having recent lithotripsy procedure done with Dr Vance on 12/20/2023. Hx of previous lithotripsy. Pt now having dark red bloody urine. Reports that bloody urine usually resolves within a few days but today he still having dark red urine today. pt denies any pain, but does feel like he is retaining some urine. Hx parkinsons. Pt a&ox4.
[2023-12-24 10:30] VITALS: BP 150/67; PULSE 58; RESP 13; O2SAT 99
[2023-12-24 10:31] LABS: BUN Creatinine Ratio 24.6 (6-22); Blood Urea Nitrogen 17 mg/dL (9-20); Calcium 8.7 mg/dL (8.4-10.2); Carbon Dioxide 33 mmol/L (22-32); Chloride 104 mmol/L (98-107); Estimated Glomerular Filt Rate > 60 mL/min (>60); Glucose 97 mg/dL (80-110); HEMOLYSIS < 15 (0-50); Potassium 3.6 mmol/L (3.4-5.1); Sodium 139 mmol/L (137-145)
== END 2023-12-24 11:10 | disposition home or self-care (01) ==
PROVIDERS: Emergency Provider Emergency Medicine; PCP Family Medicine
DX: R31.9 Hematuria, unspecified (principal)
CPT/HCPCS: 36415; 80048; 81001; 85025; 87086; 99283

== ENCOUNTER → 2024-02-07 09:30 | Outpatient (CLI) | payer MEDICARE, SELFPAY ==
--- NOTE | 2024-02-07 09:31 | DI.RAD.S_ITS ---
PROCEDURE: XR KUB INDICATIONS: Calculus of kidney TECHNIQUE: One view of the abdomen acquired. COMPARISON: [facility], CR, XR KUB, 12/04/2023, 8:20. [facility], US, US ABDOMEN LIMITED, 01/07/2024, 8:38. [facility], CR, XR KUB, 12/20/2023, 9:58. FINDINGS: Surgical changes and devices: Surgical tacks project over the left hemipelvis from prior hernia repair. Bowel: Bowel gas pattern is normal. Soft tissues: Previously seen calcification in the left mid abdomen is no longer seen. Similar appearance of calcified pelvic phleboliths. No suspicious abdominal calcifications. Visualized solid organ contours appear normal in size. Bones: No suspicious bony lesions. No acute fractures. Multilevel degenerative changes with levoconvex curvature of the lumbar spine with apex at L3. IMPRESSION: 1. Previously seen calcification in the left mid abdomen corresponding to a renal pelvis nephrolith is no longer seen. 2. No radiographic evidence to suggest nephrolithiasis. Dictated by: Richmond Floyd M.D. on 02/07/2024 at 15:34 Approved by: Richmond Floyd M.D. on 02/07/2024 at 15:38
== END ==
PROVIDERS: PCP Family Medicine; Referring Provider Specialist; Visit Provider Specialist
DX: N20.0 Calculus of kidney (principal)
CPT/HCPCS: 74018

== ENCOUNTER → 2024-03-04 09:16 | Outpatient (CLI) | payer MEDICARE, SELFPAY ==
[2024-03-04 11:38] LABS: BUN Creatinine Ratio 28.6 (6-22); Blood Urea Nitrogen 22 mg/dL (9-20); Calcium 8.8 mg/dL (8.4-10.2); Carbon Dioxide 28 mmol/L (22-32); Chloride 108 mmol/L (98-107); Cholesterol 115 mg/dL (140-199); Estimated Glomerular Filt Rate > 60 mL/min (>60); Glucose 101 mg/dL (80-110); HDL Cholesterol 52 mg/dL (40-60); HEMOLYSIS < 15 (0-50); LDL Cholesterol Calculated 53 mg/dL (<100); Potassium 3.9 mmol/L (3.4-5.1); Sodium 142 mmol/L (137-145); Triglycerides 50 mg/dL (35-150)
== END ==
LOC: LAB 09:17
PROVIDERS: PCP Family Medicine; Referring Provider Internal Medicine Interventional Cardiology; Visit Provider Internal Medicine Interventional Cardiology
DX: I25.810 Atherosclerosis of coronary artery bypass graft(s) without angina pectoris (principal)
CPT/HCPCS: 36415; 80048; 80061

== ENCOUNTER → 2025-03-03 06:58 | Outpatient (CLI) | payer MEDICARE, SELFPAY ==
[2025-03-03 07:43] LABS: Hematocrit 41.5 % (41-53); Hemoglobin 14.3 g/dL (13.5-17.5); Mean Corpuscular HGB Conc 34.4 % (30-36); Mean Corpuscular Hemoglobin 30.8 PG (26-34); Mean Corpuscular Volume 89.6 fL (80-100); Platelet Count 124 X10^3/uL (150-400)
[2025-03-03 08:06] LABS: Hemoglobin A1C% w Est Avg Glu 5.5 % (4.0-6.0)
[2025-03-03 08:08] LABS: Alanine Aminotransferase 8 IU/L (<50); Albumin 4.4 g/dL (3.5-5.0); Albumin Globulin Ratio 2.1 (1.0-2.8); Alkaline Phosphatase 58 U/L (38-126); Blood Urea Nitrogen 25 mg/dL (9-20); Calcium 9.2 mg/dL (8.4-10.2); Carbon Dioxide 29 mmol/L (22-32); Chloride 104 mmol/L (98-107); Cholesterol 127 mg/dL (140-199); Estimated Glomerular Filt Rate > 60 mL/min (>60); Globulin 2.1 g/dL (1.7-4.1); Glucose 97 mg/dL (70-99); HDL Cholesterol 54 mg/dL (40-60); HEMOLYSIS < 15 (0-50); Potassium 3.9 mmol/L (3.4-5.1); Sodium 142 mmol/L (137-145); Total Protein 6.5 g/dL (6.3-8.2); Triglycerides 67 mg/dL (35-150)
[2025-03-03 08:33] LABS: TSH w/ Reflex to FT4 3.23 uIU/mL (0.47-4.68)
== END ==
PROVIDERS: PCP Family Medicine; Referring Provider Internal Medicine Interventional Cardiology; Visit Provider Family Medicine
DX: I10 Essential (primary) hypertension (principal); I25.810 Atherosclerosis of coronary artery bypass graft(s) without angina pectoris; Z95.1 Presence of aortocoronary bypass graft
CPT/HCPCS: 36415; 80053; 80061; 83036; 84443; 84480; 85027